=== PATIENT | male | born 2005 | race Caucasian/White ===

== ENCOUNTER 2024-02-09 13:47 | Emergency (ER) | payer BC ==
[2024-02-09 14:04] VITALS: PULSE 96; RESP 18; TEMP 97; O2SAT 100
--- NOTE | 2024-02-09 14:49 | ERPHSYRPT ---
- History of Present Illness Time Seen by Provider: 02/09/24 13:54 Source: patient Exam Limitations: no limitations Patient Subjective Stated Complaint: Laceration Triage Nursing Assessment: Patient brought into ED per w/c and transferred self to bed. Patient A+O X3. Patient's skin pink, warm and dry. Patient states he was at work and was cutting something with a experimental box tester when the knife slipped cutting him in the left wrist. Patient has puncture site 0.7cm X 0.2 cm to left wrist. Patient denies pain or discomfort. Physician History: Patient is here with left wrist laceration. Just prior to arrival patient was using a experimental box tester at work. States he slipped and cut his left wrist. 0.7 cm x 0.2 cm. Patient is up-to-date on his tetanus shot. No other injuries. It is still somewhat oozing. However no signs of arterial bleed. Patient is taking PO well. Same number of urinations and defecations. The patient has no signs of altered mental status, nuchal rigidity, signs of meningitis. The patient is up-to-date on all vaccinations. Timing/Duration: today Severity: mild Allergies/Adverse Reactions: Penicillins Allergy (Verified 02/09/24 13:55) Home Medications: No Reportable Medications [No Reported Medications] 02/09/24 [History] Hx Tetanus, Diphtheria Vaccination/Date Given: Yes Hx Influenza Vaccination/Date Given: No Hx Pneumococcal Vaccination/Date Given: No Immunizations Up to Date: Yes Travel Risk - International Travel Have you traveled outside of the country in past 3 weeks: No - Emerging Infectious Disease Are you exhibiting symptoms associated with any current EIDs: No - Past Medical History Pertinent Past Medical History: No Neurological History: No Pertinent History ENT History: No Pertinent History Cardiac History: No Pertinent History Respiratory History: No Pertinent History Endocrine Medical History: No Pertinent History Musculoskeletal History: No Pertinent History GI Medical History: No Pertinent History History: No Pertinent History Psycho-Social History: No Pertinent History Male Reproductive Disorders: No Pertinent History - Past Surgical History Past Surgical History: No Neuro Surgical History: No Pertinent History Cardiac: No Pertinent History Respiratory: No Pertinent History Gastrointestinal: No Pertinent History Genitourinary: No Pertinent History Musculoskeletal: No Pertinent History Male Surgical History: No Pertinent History - Social History Smoking Status: Never smoker Exposure to second hand smoke: No Drug Use: none - Social Determinants of Health Will the patient participate in the screening: Yes Do you worry about a steady place to live?: No Do you have any problems with any of the following?: No known problems In the past 12 months,have you had to go without utilities?: No Transportation Issues: No Has anyone in your support network made you feel unsafe?: No Have you or anyone in your house had to go without enough: No - Nursing Vital Signs Nursing Vital Signs: Initial Vital Signs Temperature 97.0 F 02/09/24 13:57 Pulse Rate 96 H 02/09/24 13:57 Respiratory Rate 18 02/09/24 13:57 Blood Pressure 155/90 02/09/24 13:57 O2 Sat by Pulse Oximetry 100 02/09/24 13:57 Pain Scale Pain Intensity 0 - Physical Exam SpO2: 100 Comments: 02/09/24 15:39 Review of Systems Constitutional: Negative for fever. HENT: Negative for congestion. Respiratory: Negative for shortness of breath. Cardiovascular: Negative for chest pain. Gastrointestinal: Negative for abdominal pain. Genitourinary: Negative for dysuria. Musculoskeletal: Negative for back pain. Skin: Negative for rash. Neurological: Negative for headaches. Psychiatric/Behavioral: Negative for behavioral problems. All other systems reviewed and are negative. Physical Exam Vitals signs and nursing note reviewed. Constitutional: Appearance: Patient is well-developed. HENT: Head: Normocephalic and atraumatic. Eyes: Conjunctiva/sclera: Conjunctivae normal. Neck: Musculoskeletal: Normal range of motion. Trachea: No tracheal deviation. Cardiovascular: Rate and Rhythm: Normal rate. Pulmonary: Effort: Pulmonary effort is normal. No respiratory distress. Abdominal: Palpations: Abdomen is soft. Musculoskeletal: General: No deformity. Skin: General: Skin is warm and dry. Left wrist laceration 0.7cm x 0.2cm. Still oozing. No signs of arterial bleed. Ulnar pulses 2+ and lateral to the injury. Radial pulses 2+. No obvious deformity, sensation intact, 2+ capillary refill, 2 point tactile discrimination intact. 5 out of 5 strength. Full range of motion without pain. Compartments are soft, nontender. Overlying skin shows no tenting, bruising, ecchymosis. Neurological/ Psychiatric: Mental Status: Mental status, behavior, interaction with environment is appropriate for patient's age and condition Procedures - Laceration/Wound Repair Wrist Time of Procedure: 14:00 Wound Location: Left, wrist Wound Length (cm): 1 Wound's Depth, Shape: superficial Wound Explored: clean Irrigated: No Hibiclens Prep: No Anesthesia: topical Wound Debrided: minimal Wound Repaired With: sutures Suture Size/Type: 4-0, prolene Number of Sutures: 1 Layer Closure?: No Sterile Dressing Applied?: Yes Splint Applied?: Yes Sling Applied?: Yes - Course Nursing assessment & vital signs reviewed: Yes - Progress Progress: improved Progress Note: 02/09/24 15:41 Laceration repaired as above. Up-to-date on tetanus shot. On physical exam, no signs of foreign body. Plan for suture removal in 7 days. Return here sooner for new or changing symptoms. I did go over risks, benefits, signs and symptoms of infection with patient and his mom. Counseled pt/family regarding: diagnosis, need for follow-up Medical Desision Making - Independent Historian Additional History obtained from: Mother - Departure Departure Disposition: Home Clinical Impression: Laceration of left wrist Qualifiers: Encounter type: initial encounter Qualified Code(s): S61.512A - Laceration without foreign body of left wrist, initial encounter Condition: Stable Critical Care Time: No Referrals: DOCTOR,NO FAMILY [Primary Care Provider] - Follow up/PCP as directed Instructions: Laceration Repair With Stitches (DC)
[2024-02-09 15:06] VITALS: BP 134/79
== END 2024-02-09 15:03 | disposition home or self-care (01) ==
LOC: ED 13:47
DX: S61.512A Laceration without foreign body of left wrist, initial encounter (principal); W26.8XXA Contact with other sharp object(s), not elsewhere classified, initial encounter; Y99.0 Civilian activity done for income or pay
CPT/HCPCS: 12001; 99282; 99283